=== PATIENT | male | born 1970 | race Caucasian/White ===

== ENCOUNTER 2021-10-30 03:45 | Inpatient (IN) | payer MEDICAID ==
[~2021-10-30] VITALS: Ht 172.7 cm; Wt 72.6 kg
--- NOTE | 2021-10-30 04:02 | NUR ---
Dr. Lama at bedside for MSE.
--- NOTE | 2021-10-30 04:02 | NUR ---
pt c/o right leg swelling, started two days ago.
[2021-10-30] MEDS ORDERED: LINA290C PO (04:10)
[2021-10-30] MEDS ORDERED: LOSA25TA27 PO (04:10)
[2021-10-30] MEDS ORDERED: PIPERACILLIN SODIUM/TAZOBACTAM 3.375 G in IV DEXTROSE 5% 50 ML IV ONE (04:30)
[2021-10-30] MEDS ORDERED: VANCOMYCIN IV 1,000 MG in IV DEXTROSE 5% 250 ML IV ONE (04:30)
[2021-10-30] MEDS ORDERED: ONDANSETRON 4 MG/2 ML VIAL IV ONE (04:30)
[2021-10-30] MEDS ORDERED: HYDROMORPHONE 1 MG/1 ML DISP.SYRIN IV ONE (04:30)
[2021-10-30] MEDS ORDERED: IV NORMAL SALINE 1000 ML BAG IV ONE (04:30)
[2021-10-30] MEDS ORDERED: HYDROMORPHONE 1 MG/1 ML DISP.SYRIN ONE (05:07)
[2021-10-30] MEDS ORDERED: VANCOMYCIN IV 200 ML ONE (05:07)
[2021-10-30] MEDS ORDERED: PIPERACILLIN/TAZOBACTAM/D5W 50 ML IV ONE (05:07)
[2021-10-30] MEDS ORDERED: ONDANSETRON 4 MG/2 ML VIAL ONE (05:07)
[2021-10-30 05:12] LABS: MEAN CORPUSCULAR HEMOGLOBIN 31.6 uug (23.8-33.4); MEAN CORPUSCULAR VOLUME 91.1 fL (73.0-96.2); PLATELET COUNT (AUTO) 360 K/uL (152-348)
[2021-10-30 05:21] LABS: CARBON DIOXIDE 29 mmol/L (21-32); CHLORIDE 101 mmol/L (98-107); GLUCOSE 87 mg/dL (74-106); POTASSIUM 3.7 mmol/L (3.5-5.1); UREA NITROGEN, BLOOD 26 mg/dL (7-18)
--- NOTE | 2021-10-30 05:31 | NUR ---
snow technician at bedside.
[2021-10-30 05:36] LABS: ALANINE AMINOTRANSFERASE 34 U/L (16-63); ALKALINE PHOSPHATASE 229 U/L (50-136); ASPARTATE AMINOTRANSFERASE 24 U/L (15-37); BILIRUBIN,DIRECT 0.3 mg/dL (0.0-0.2); BILIRUBIN,TOTAL 0.6 mg/dL (0.2-1.0); TOTAL PROTEIN, SERUM 7.4 g/dL (6.4-8.2)
--- NOTE | 2021-10-30 05:46 | NUR ---
call placed to rosa aguayo nurse practitioner adult.
--- NOTE | 2021-10-30 05:59 | NUR ---
Dr. Lama on panel call with Caridad Child NP.
[2021-10-30] MEDS ORDERED: NICOTINE 21 MG/24HR PATCH TD ONE (06:01)
--- NOTE | 2021-10-30 06:17 | NUR ---
Caridad oK called back pt to be admited to M/S status.
[2021-10-30] MEDS ORDERED: REMEDY ESSENTIAL ZINC PASTE 113 GM TP PRN (07:00)
[2021-10-30] MEDS ORDERED: ONDANSETRON 4 MG/2 ML VIAL IV PRN (07:00)
--- NOTE | 2021-10-30 07:10 | NUR ---
Received pt in bed, NAD noted at this time.
--- NOTE | 2021-10-30 08:15 | NUR ---
Breakfast tray provided, pt ate w/ moderate appettite.
--- NOTE | 2021-10-30 08:20 | NUR ---
Attempted x2 to give report to admitting m/s Rn, Rn was busy.
[2021-10-30] MEDS: ACETAMINOPHEN 325 MG TABLET PO PRN (08:24)
[2021-10-30] MEDS ORDERED: ACETAMINOPHEN 325 MG TABLET ONE (08:31)
--- NOTE | 2021-10-30 08:46 | NUR ---
Report given to Shin HERNÁNDEZ.
--- NOTE | 2021-10-30 08:48 | NUR ---
RECEIVED PATIENT FOR ADMISSION 50 YEARS OLD MALE FROM THE ED WITH DX OF CELLULITIS PLACED INTO BED FIXED AND MADE COMFORTABLE PATIENT IS ALERT AND ORIENTED ORIENTED TO ROOM AND FACILITY PROTOCOL HE IS ON ROOM AIR WITH NO SHORTNESS OF BREATH AT THIS TIME MULTIPLE AREAS OF OPEN WOUNDS ON HIS LEFT THUMB RIGHT FOURTH FINGER AND A DRY SCAB ON HIS RIGHT UPPER ARM.HE HAS ALSO OPEN WOUNDS ON HIS RIGHT LEG CELLULITIS AND IS WEEPING SEROUS DRAINAGE ABOUT 4 PLUS EDEMA AND ERYTHEMA ELEVATED ON THE PILLOW PATIENT MADE COMFORTABLE WILL CONTINUE TO OBSERVE
[2021-10-30] MEDS ORDERED: NICOTINE 21 MG/24HR PATCH TD SCH (09:00)
[2021-10-30 09:03] VITALS: BP 117/69
--- NOTE | 2021-10-30 09:30 | NUR ---
DR GONZÁLES HERE NOTIFIED HIM THAT PATIENT IS C/O PAIN AND NEEDED PAIN MEDICATIONS WITH ORDERS AND NOTED.
[2021-10-30] MEDS: PIPERACILLIN SODIUM/TAZOBACTAM 3.375 G in IV DEXTROSE 5% 50 ML IV SCH ×3 (10:27→23:08)
[2021-10-30] MEDS: MORPHINE SULFATE 2 MG/1 ML DISP.SYRIN IV PRN ×3 (10:28→21:48)
--- NOTE | 2021-10-30 10:28 | NUR ---
PATIENT C/O SEVERE PAIN MEDICATED WITH MORPHINE ORDERED MADE COMFORTABLE WILL CONTINUE TO OBSERVE.
[2021-10-30] MEDS: ENOXAPARIN SODIUM 40 MG/0.4 ML DISP.SYRIN SQ SCH (10:29)
[2021-10-30 11:30] VITALS: BP 108/57
[2021-10-30 11:33] VITALS: BP 123/70
--- NOTE | 2021-10-30 12:56 | NUR ---
IV SITE RIGHT ANTECUBITAL INFILTERATED REINSERTED TO HIS RIGHT FOREARM WITH ANGIO 20 SECURED AND TOLERATED WELL.
--- NOTE | 2021-10-30 13:41 | NUR ---
WOUND CARE CONSULT: PT PRESENTS WITH PROFOUND REDNESS, EDEMA AND WEEPING OF RT LOWER LEG, OPEN WOUND TO LEFT THUMB AND TO RT 4TH FINGER KNUCKLE, PRESENT ON ADMISSION. SURGICAL AND DPM CONSULTS CALLED TO DR BURRELL AND DR VALERA. DISCUSSED SKIN PROTECTION WITH NURSING STAFF. MD IN AGREEMENT WITH PLAN OF CARE.
--- NOTE | 2021-10-30 15:29 | NUR ---
PATIENT IS IN BED SLEEPING AT LONG INTERVAL BUT EASILY AROUSABLE ON ROUNDS STATED PAIN IS GOOD NOW VOIDING WELL SPECIMEN OBTAINED AND SENT TO THE LAB ORDERED TOLERATING IV ANTIBIOTICS ORDERED WITH NO ADVERSE OR ALLERGIC REACTIONS AT THIS TIME.
[2021-10-30 15:47] LABS: *BILIRUBIN,URIN NEGATIVE (NEGATIVE); *BLOOD, URINE 1+ (NEGATIVE); *CLARITY,URINE CLEAR (CLEAR); *COLOR,URINE YELLOW (YELLOW); *KETONES,URINE NEGATIVE (NEGATIVE); LEUKOCYTE ESTERASE ,URINE NEGATIVE (NEGATIVE); NITRITE, URINE NEGATIVE (NEGATIVE); UGLUCOSE NEGATIVE (NEGATIVE)
[2021-10-30 16:00] VITALS: BP 118/85
[2021-10-30] MEDS: VANCOMYCIN IV 1,000 MG in IV DEXTROSE 5% 250 ML IV SCH (17:34)
[2021-10-30] MEDS ORDERED: ALBUTEROL SULFATE 2.5 MG/3 ML NEBU NEB PRN (17:45)
[2021-10-30] MEDS: HYDROCODONE/APAP 5-325MG TABLET PO PRN (19:43)
--- NOTE | 2021-10-30 19:43 | NUR ---
Patient requesting for pain medication. Morphine IV not due; medicated with [place]. R leg with wound oozing serous fluids. Pad changed. Pedal pulses palpable, patient able to wiggle toes.
[2021-10-30 19:48] LABS: BACTERIA,URINE NONE SEEN /HPF (NONE SEEN); SQUAMOUS EPITHELIAL CELL,UR NONE SEEN /HPF (NONE SEEN); WBC,URINE 0-3 /HPF (0-3)
[2021-10-30 20:00] VITALS: BP 126/75
[2021-10-30] MEDS: NEOMY/BACITRAC/POLYMI OINT 28.35 GM TUBE TOP SCH (22:15)
[2021-10-31] MEDS: MORPHINE SULFATE 2 MG/1 ML DISP.SYRIN IV PRN ×2 (02:18→06:09)
[2021-10-31 04:00] VITALS: BP 145/80
[2021-10-31] MEDS: HYDROCODONE/APAP 5-325MG TABLET PO PRN (04:15)
--- NOTE | 2021-10-31 04:15 | NUR ---
Patient awake, asking for pain medication. Was medicated with Morphine IV at 0218. [place] 1 tab given. R leg wound treatment done. Wound cleaned with NS, patted dry, xeroform dressing applied, covered with gauze and wrapped with kerlix. Wound still oozing serous fluids. R leg remains elevated on a pillow. Patient voiding large amounts of clear shan urine.
[2021-10-31] MEDS: PIPERACILLIN SODIUM/TAZOBACTAM 3.375 G in IV DEXTROSE 5% 50 ML IV SCH ×4 (04:25→22:17)
[2021-10-31] MEDS: VANCOMYCIN IV 1,000 MG in IV DEXTROSE 5% 250 ML IV SCH ×2 (05:18→19:03)
[2021-10-31] MEDS: PANTOPRAZOLE SODIUM 40 MG TABLET.DR PO SCH (06:05)
--- NOTE | 2021-10-31 06:33 | NUR ---
Requiring Morphine 2 mg IV Q4H for R leg pain from cellulitis. VS stable.
[2021-10-31 07:16] LABS: HEMATOCRIT 39.4 % (36.7-47.1); MEAN CORPUSCULAR HEMOGLOBIN 31.9 uug (23.8-33.4); MEAN CORPUSCULAR VOLUME 91.5 fL (73.0-96.2); PLATELET COUNT (AUTO) 318 K/uL (152-348)
[2021-10-31 07:33] LABS: CREATININE 0.9 mg/dL (0.6-1.3); MAGNESIUM 1.8 mg/dL (1.8-2.4); PHOSPHOROUS 3.3 mg/dL (2.5-4.9)
--- NOTE | 2021-10-31 07:58 | NUR ---
RECEIVED PATIENT IN BED ASLEEP WITH EYES CLOSED BUT IS EASILY AROUSABLE ON ROUNDS NO S/S OF PAIN OR DISCOMFORTS AT THIS TIME REMAIN ON ATB ORDERED WITH NO ADVERSE OR ALLERGIC REACTIONS AT THIS TIME ON ROOM AIR WITH NO SHORTNESS OF BREATH RIGHT LEG CELLULITIS REMAINS SWOLLEN WITH ERYTHEMA AND WITH SEROUS DRAINAGE BUT HAS DRESSING INTACT AT THIS TIME RIGHT LEG ELEVATED ON THE PILLOW CALL LIGHTS AND PERSONAL BELONGINGS ARE WITHIN EASY REACH AT THIS TIME WILL CONTINUE TO OBSERVE.
[2021-10-31 08:28] LABS: THYROID STIMULATING HORMONE 1.508 mIU/mL (0.358-3.740)
[2021-10-31] MEDS: ENOXAPARIN SODIUM 40 MG/0.4 ML DISP.SYRIN SQ SCH (08:42)
[2021-10-31] MEDS: NEOMY/BACITRAC/POLYMI OINT 28.35 GM TUBE TOP SCH (09:07)
[2021-10-31] MEDS: MORPHINE SULFATE 4 MG/1 ML DISP.SYRIN IV PRN ×3 (10:27→20:34)
[2021-10-31 11:56] VITALS: BP 140/89
--- NOTE | 2021-10-31 12:41 | NUR ---
PATIENT SEEN AND EXAMINED BY DR FUENTES WITH NEW ORDERS AND NOTED.
[2021-10-31] MEDS: CADEXOMER IODINE 40 GM TUBE TOP SCH (15:28)
[2021-10-31 16:26] VITALS: BP 137/81
--- NOTE | 2021-10-31 18:00 | NUR ---
CONTINUE ON IV ATB ORDERED WITH NO ADVERSE OR ALLERGIC REACTIONS AT THIS TIME PATIENT IS FOR MRI OF THE RIGHT LOWER LEG AWAITING FOR THE [employer]ION PICTURE EQUIPMENT MACHINIST TO CALL WITH APPOINTMENT.
--- NOTE | 2021-10-31 19:00 | NUR ---
RECEIVED PT AWAKE ,ALERT AND ORIENTEDX4. PT IN NO ACUTE DISTRESS. IV INTACT. PT ON ROOM AIR.PT RIGHT LEG SWOLLEN AND ELEVATED WITH DRESSING INTACT. SAFETY AND COMFORT PROVIDED. WILL ENDORSE TO INCOMING NURSE FOR CONTINUITY OF CARE.
[2021-10-31 20:03] VITALS: BP_SYST 114; BP_SYST 144; BP_DIAS 82; BP_DIAS 93
--- NOTE | 2021-10-31 21:00 | NUR ---
AT 2033H MORPHINE 3MG PRN GIVEN TO PT FOR LEG PAIN. PT TOLERATED IT WELL. WILL CONTINUE TO MONITOR.
[2021-10-31] MEDS: MAGNESIUM HYDROXIDE 30 ML LIQUID UDC PO PRN (23:00)
[2021-11-01] MEDS: MORPHINE SULFATE 4 MG/1 ML DISP.SYRIN IV PRN ×5 (00:49→22:39)
[2021-11-01] MEDS: VANCOMYCIN IV 1,000 MG in IV DEXTROSE 5% 250 ML IV SCH ×3 (01:37→18:02)
--- NOTE | 2021-11-01 01:49 | NUR ---
[id number] Morphine 3mg prn given for 8/10 leg pain. Pt tolerated it well. After an hour pt stated he felt a little better. Will cotninue to monitor.
[2021-11-01 04:15] VITALS: BP 151/86
[2021-11-01] MEDS: PIPERACILLIN SODIUM/TAZOBACTAM 3.375 G in IV DEXTROSE 5% 50 ML IV SCH ×4 (05:12→22:32)
--- NOTE | 2021-11-01 05:51 | NUR ---
Pt slept intermittently. Pt in no acute distress. Iv intact. Pt right leg elevated. Dressing changed. Pain management noted. Prescribed medication given and pt tolerated it well. Pt at midnight NPO. Vital signs within normal limit. Safety and comfort provided. Will endorse to incoming nurse for continuity of care.
[2021-11-01] MEDS: PANTOPRAZOLE SODIUM 40 MG TABLET.DR PO SCH (06:08)
--- NOTE | 2021-11-01 06:09 | NUR ---
P:t refused Protonix medication and pt will have MRI later so pt is on NPO. Will endorse to incoming nurse.
[2021-11-01 07:51] LABS: CREATININE 0.8 mg/dL (0.6-1.3); POTASSIUM 5.1 mmol/L (3.5-5.1)
[2021-11-01] MEDS: ENOXAPARIN SODIUM 40 MG/0.4 ML DISP.SYRIN SQ SCH (08:28)
[2021-11-01] MEDS: CADEXOMER IODINE 40 GM TUBE TOP SCH (08:31)
[2021-11-01] MEDS: NEOMY/BACITRAC/POLYMI OINT 28.35 GM TUBE TOP SCH (08:31)
--- NOTE | 2021-11-01 08:38 | NUR ---
patient is alert and oriented x4 able to make needs known. patient is on r/a, respiratiosn even an dnon-labored, 0 episode of sob at this time. bowel sounds active in all 4 quadrants, abd is soft and non-tender. currently with ongoing cellulitis to right leg, right leg is slightly red and warm to touch ongoing topical treatment and IV atb tolerating well. patient states slight discomfort to right leg states " it is feeling better" informed patient he is on NPO status at this time, pending MRI with contrast to right leg. patient states understanding. v.s wnl at this time afebrile.
[2021-11-01 12:00] VITALS: BP 131/88
[2021-11-01] MEDS ORDERED: GADOTERATE MEGLUMINE 10 MMOL/20 ML VIAL IV ONE (15:08)
[2021-11-01] MEDS: NICOTINE 21 MG/24HR PATCH TD SCH (15:27)
[2021-11-01] MEDS ORDERED: LIDOCAINE 1%-EPI 1:100,000 20 ML VIAL IJ STA (16:27)
[2021-11-01 16:29] VITALS: BP 159/95
--- NOTE | 2021-11-01 17:00 | NUR ---
Dr. Chung in unit, per Dr. Chung she will attempt a serial right lower leg incision and draining with excisional wound debridement, Dr. Chung obtained consent, supplies where provided to MD. Per Dr. Chung procedure was unable to be completed at bedside and patient will be scheduled for surgery at 1330 on 11/02 procedure is right lower leg incision and drainage with excisional wound debridement. and order for patient to be NPO tonight at midnight noted and carried out.
--- NOTE | 2021-11-01 17:53 | NUR ---
called Dr. Pisano regarding patient requesting x1 morphine due to increased pain to right lower leg. x1 order for morphine 2mg via iv noted and carried out. informed Dr. Pisano patient is scheduled for a right lower leg incision and drainage with excisional wound debridement with Dr. Chung
[2021-11-01] MEDS ORDERED: MORPHINE SULFATE 2 MG/1 ML DISP.SYRIN IV ONE (18:00)
[2021-11-01 20:34] VITALS: BP 157/97
--- NOTE | 2021-11-01 23:58 | NUR ---
npo p midnight instructed for the ordered procedure in am. Addendum: 11/02/21 at 0007 by REGISTRY [facility] RN1 RN with orders for NPO except medication for breakfast
[2021-11-02] MEDS: VANCOMYCIN IV 1,000 MG in IV DEXTROSE 5% 250 ML IV SCH ×3 (02:13→17:54)
--- NOTE | 2021-11-02 02:47 | NUR ---
ambulated to the bathroom with the walker and standby assist. back to bed,tolerated well
[2021-11-02] MEDS: MORPHINE SULFATE 4 MG/1 ML DISP.SYRIN IV PRN ×3 (03:00→18:49)
--- NOTE | 2021-11-02 03:14 | NUR ---
morphine 3 mg ivp given for right lower leg pain.with complaints of being warm.will continue to monitor Addendum: 11/02/21 at 0338 by REG[facility]RY [facility] RN1 RN claims morphine dose relieves the pain but the pain will come back again. informed that the procedure to be done in the day shift tomorrow.
[2021-11-02 04:20] VITALS: BP 157/99
--- NOTE | 2021-11-02 04:53 | NUR ---
npo except medication for breakfast.with the same ivf on.
[2021-11-02] MEDS: PIPERACILLIN SODIUM/TAZOBACTAM 3.375 G in IV DEXTROSE 5% 50 ML IV SCH ×4 (05:08→22:09)
--- NOTE | 2021-11-02 05:53 | NUR ---
reinstructed to be npo except medications. expressed understanding
[2021-11-02] MEDS: PANTOPRAZOLE SODIUM 40 MG TABLET.DR PO SCH (06:17)
--- NOTE | 2021-11-02 06:38 | NUR ---
,medication due given npo thereafter
--- NOTE | 2021-11-02 06:59 | NUR ---
asking for pain medication but not yet due, will give when due
--- NOTE | 2021-11-02 07:34 | NUR ---
medication from home will be given to the pharmacy.home medication not reconciled
[2021-11-02] MEDS ORDERED: LOSA1TAB36 PO (07:49)
[2021-11-02] MEDS: NICOTINE 21 MG/24HR PATCH TD SCH (08:15)
[2021-11-02] MEDS: ENOXAPARIN SODIUM 40 MG/0.4 ML DISP.SYRIN SQ SCH (08:15)
[2021-11-02] MEDS: NEOMY/BACITRAC/POLYMI OINT 28.35 GM TUBE TOP SCH (08:26)
[2021-11-02] MEDS: CADEXOMER IODINE 40 GM TUBE TOP SCH (08:26)
[2021-11-02 11:12] VITALS: BP 152/96
[2021-11-02] MEDS ORDERED: MIDAZOLAM HCL 2 MG/2 ML VIAL ONE (13:09)
[2021-11-02] MEDS ORDERED: FENTANYL CITRATE 100 MCG/2 ML AMPUL ONE ×3 (13:09→16:01)
[2021-11-02] MEDS ORDERED: HYDROMORPHONE 1 MG/1 ML DISP.SYRIN ONE (15:16)
[2021-11-02 15:51] LABS: HEMATOCRIT 45.2 % (36.7-47.1); MEAN CORPUSCULAR HEMOGLOBIN 30.9 uug (23.8-33.4); PLATELET COUNT (AUTO) 467 K/uL (152-348)
--- NOTE | 2021-11-02 16:52 | NUR ---
patient returned from surgery s/p right lower leg incision and drainage, patient is currently sleeping but arousable currently on 2L via n/c with spo2 96% on 2L, rr even and non-labored, 0 episode of sob at this time. patient with dressing to right lower leg, no bleeding to dressing at his time, pedal pulses strong and present. patient states having pain, OR nurse reminded patient he received fentanyl in OR 5 minutes ago, patient dozed of to sleep. v.s wnl at this time. no fever. New orders for non-weightbearing to right leg x24 hours, elevate right lower leg noted and carried out. New order to d.c npo order and to resume cardiac diet. noted and carried out.
--- NOTE | 2021-11-02 17:05 | NUR ---
patient requesting an increase in pain medication, Dr. Pisano notified pending call back
[2021-11-02 20:00] VITALS: BP 133/85
--- NOTE | 2021-11-02 20:00 | NUR ---
ROUNDED PATIENT IN BED SLEEPING NO RESPIRATORY DISTRESS NOTED. BREATHING EVEN AND UNLABORED .02 O2 NASAL CANNULA AT 2 L/MIN . NAME CALLED PATIENT EASILY AWAKENED. CHECKED RIGHT LEG POST OP - DRESSING CLEAN DRY AND INTACT , WITH GOOD CMS . PALPABLE PULSES DP .PATIENT ABLE TO FEEL WHEN TOES ARE TOUCH . RIGHT LEG ELEVATED WITH PILLOW . ADVISED TO BED ON BEDREST FOR NOW AND NWB ON THE RIGHT LEG .
--- NOTE | 2021-11-02 21:30 | NUR ---
PATIENT CALLED AND REQUESTING FOR PAIN MEDICATION , INFORMED HIS PAIN MEDS IS MORPHINE AND PER DAY SHIFT RN IT WAS GIVEN AT 1830 AND ITS Q6 HOURS PRN FOR PAIN AND ITS NOT DUE ,PATIENT VERBALIZED HIS IN PAIN AND Q 6 HOURS IS INTERVAL IS SO LONG AND WANT MEDICATION FOR SLEEP . INFORMED RN WILL CALL HIS DOCTOR AND WILL ASKED FOR PAIN MED AND SLEEPING MEDS .
[2021-11-02] MEDS: ACETAMINOPHEN 325 MG TABLET PO PRN (21:43)
--- NOTE | 2021-11-02 22:02 | NUR ---
DUE ANTIBIOTIC GIVEN ZOSYN . CHECKED IV SITE CDI AND PATENT ,FLUSHED SITE .
[2021-11-02] MEDS: GABAPENTIN 100 MG CAPSULE PO SCH (22:16)
[2021-11-02] MEDS: TRAMADOL HCL 50 MG TABLET PO SCH (22:16)
--- NOTE | 2021-11-02 22:16 | NUR ---
GIVEN TRAMADOL AND GABAPENTIN PO SEE EMAR .
[2021-11-02] MEDS: ZOLPIDEM 5 MG TABLET PO PRN (22:24)
--- NOTE | 2021-11-02 22:31 | NUR ---
PATIENT REQUESTED PUDDING PROVIDED VANILLA AND CHOCOLATE FLAVORED PATIENT ABLE TO FEED SELF.
--- NOTE | 2021-11-02 23:59 | NUR ---
SLEEPING IN BED NO S/S OF PAIN OR RESPIRATORY DISTRESS NOTED .
[2021-11-03] MEDS: VANCOMYCIN IV 1,000 MG in IV DEXTROSE 5% 250 ML IV SCH ×3 (01:31→18:15)
[2021-11-03 04:00] VITALS: BP 130/79
[2021-11-03] MEDS: PIPERACILLIN SODIUM/TAZOBACTAM 3.375 G in IV DEXTROSE 5% 50 ML IV SCH ×4 (04:05→22:28)
[2021-11-03] MEDS: MORPHINE SULFATE 4 MG/1 ML DISP.SYRIN IV PRN ×4 (04:05→22:35)
--- NOTE | 2021-11-03 04:38 | NUR ---
PATIENT CALLED AND REQUESTING FOR SNACK GIVEN PUDDING VANILLA AND CHOCOLATE . CRANBERRY JUICE PATIENT ABLE TO FEED SELF.
[2021-11-03] MEDS: PANTOPRAZOLE SODIUM 40 MG TABLET.DR PO SCH (06:01)
[2021-11-03 06:29] LABS: HEMATOCRIT 37.2 % (36.7-47.1); MEAN CORPUSCULAR HEMOGLOBIN 31.6 uug (23.8-33.4); MEAN CORPUSCULAR VOLUME 91.4 fL (73.0-96.2); PLATELET COUNT (AUTO) 392 K/uL (152-348)
[2021-11-03] MEDS: TRAMADOL HCL 50 MG TABLET PO SCH ×3 (09:00→16:35)
[2021-11-03] MEDS: GABAPENTIN 100 MG CAPSULE PO SCH ×3 (09:01→16:35)
[2021-11-03] MEDS: NEOMY/BACITRAC/POLYMI OINT 28.35 GM TUBE TOP SCH (09:01)
[2021-11-03] MEDS: CADEXOMER IODINE 40 GM TUBE TOP SCH (09:01)
[2021-11-03] MEDS: NICOTINE 21 MG/24HR PATCH TD SCH (09:01)
[2021-11-03] MEDS: ENOXAPARIN SODIUM 40 MG/0.4 ML DISP.SYRIN SQ SCH (09:05)
[2021-11-03 11:05] VITALS: BP 135/85
[2021-11-03] MEDS ORDERED: HOME MED MISCELLANEOUS XX SCH (13:30)
[2021-11-03] MEDS ORDERED: LINZESS 290MCG CAPSULE PO SCH (15:00)
[2021-11-03] MEDS: LOSARTAN POTASSIUM 50 MG TABLET PO SCH (15:46)
[2021-11-03] MEDS: HYDROCHLOROTHIAZIDE 12.5 MG CAPSULE PO SCH (15:46)
[2021-11-03 16:31] VITALS: BP 141/86
--- NOTE | 2021-11-03 20:00 | NUR ---
PATIENT ASLEEP IN BED. EASILY AROUSABLE. A/O X3. NO C/O PAIN AT THIS TIME. RIGHT LEG ELEVATED ON PILLOWS, DRESSING NOTED TO RIGHT LEG, C/D/I. IV HEPLOCK INTACT AND PATENT, NOTED TO RIGHT FA #20 GAUGE. DENIES ANY PAIN OR DISCOMFORT. NO RESP. DISTRESS NOTED. CALL LIGHT IN REACH. ALL NEEDS ATTENDED. WILL CONTINUE TO MONITOR AND ASSESS.
[2021-11-03 20:18] VITALS: BP 123/76
[2021-11-03] MEDS: MAGNESIUM HYDROXIDE 30 ML LIQUID UDC PO PRN (20:21)
[2021-11-04] MEDS: ZOLPIDEM 5 MG TABLET PO PRN (01:40)
[2021-11-04] MEDS: ACETAMINOPHEN 325 MG TABLET PO PRN (01:40)
[2021-11-04] MEDS: VANCOMYCIN IV 1,000 MG in IV DEXTROSE 5% 250 ML IV SCH ×2 (01:47→10:34)
[2021-11-04 04:00] VITALS: BP 119/71
[2021-11-04] MEDS: PIPERACILLIN SODIUM/TAZOBACTAM 3.375 G in IV DEXTROSE 5% 50 ML IV SCH ×2 (04:13→11:45)
[2021-11-04] MEDS: PANTOPRAZOLE SODIUM 40 MG TABLET.DR PO SCH (06:06)
[2021-11-04] MEDS ORDERED: LISINOPRIL 10 MG TABLET PO SCH (09:00)
[2021-11-04] MEDS: NICOTINE 21 MG/24HR PATCH TD SCH (09:11)
[2021-11-04] MEDS: ENOXAPARIN SODIUM 40 MG/0.4 ML DISP.SYRIN SQ SCH (09:13)
[2021-11-04] MEDS: HYDROCHLOROTHIAZIDE 12.5 MG CAPSULE PO SCH (09:14)
[2021-11-04] MEDS: GABAPENTIN 100 MG CAPSULE PO SCH ×2 (09:14→12:33)
[2021-11-04] MEDS: LOSARTAN POTASSIUM 50 MG TABLET PO SCH (09:14)
[2021-11-04] MEDS: TRAMADOL HCL 50 MG TABLET PO SCH ×2 (09:15→12:32)
[2021-11-04] MEDS: MORPHINE SULFATE 4 MG/1 ML DISP.SYRIN IV PRN (09:19)
[2021-11-04 10:07] LABS: CREATININE 0.8 mg/dL (0.6-1.3); POTASSIUM 3.9 mmol/L (3.5-5.1); VANCOMYCIN,TROUGH 17.1 ug/mL (12.0-20.0)
[2021-11-04 11:04] VITALS: BP 140/85
[2021-11-04] MEDS: NEOMY/BACITRAC/POLYMI OINT 28.35 GM TUBE TOP SCH (12:33)
[2021-11-04] MEDS: CADEXOMER IODINE 40 GM TUBE TOP SCH (12:33)
[2021-11-04] MEDS ORDERED: LIDOCAINE-MPF 2% 5 ML VIAL IJ ONE (13:59)
[2021-11-04] MEDS ORDERED: PROPOFOL 200 MG/20 ML BOTTLE IV ONE (13:59)
[2021-11-04] MEDS ORDERED: METOCLOPRAMIDE HCL 10 MG/2 ML VIAL IV ONE (13:59)
[2021-11-04] MEDS ORDERED: SEVOFLURANE 250 ML BOTTLE IH ONE (13:59)
[2021-11-04] MEDS ORDERED: ONDANSETRON 4 MG/2 ML VIAL IV ONE (13:59)
[2021-11-04] MEDS ORDERED: CEFAZOLIN 1 G VIAL IM ONE (13:59)
== END 2021-11-04 14:00 | DRG 383 ==
LOC: ER 03:58 → MEDSURG3 08:23
PROVIDERS: ADMIT Nurse Practitioner Acute Care; ATTEND Internal Medicine
PROC: 0JBN3ZZ Excision of Right Lower Leg Subcutaneous Tissue and Fascia, Percutaneous Approach (ICD-10-PCS; principal; 2021-11-01)
PROC: 0JBN3ZZ Excision of Right Lower Leg Subcutaneous Tissue and Fascia, Percutaneous Approach (ICD-10-PCS; 2021-11-02)
DX: L03.115 Cellulitis of right lower limb (principal); I73.9 Peripheral vascular disease, unspecified; F17.210 Nicotine dependence, cigarettes, uncomplicated; L03.116 Cellulitis of left lower limb; L02.415 Cutaneous abscess of right lower limb; S61.002A Unspecified open wound of left thumb without damage to nail, initial encounter; X58.XXXA Exposure to other specified factors, initial encounter; Y92.89 Other specified places as the place of occurrence of the external cause; I10 Essential (primary) hypertension; S91.321D Laceration with foreign body, right foot, subsequent encounter; W25.XXXD Contact with sharp glass, subsequent encounter; W45.8XXD Other foreign body or object entering through skin, subsequent encounter; R26.2 Difficulty in walking, not elsewhere classified; R31.9 Hematuria, unspecified; Z20.822 Contact with and (suspected) exposure to COVID-19; L03.012 Cellulitis of left finger
CPT/HCPCS: 36415; 71045; 73723; 83605; 83735; 84100; 84443; 84484; 85025; 85730; 87040; 87070; 87086; 93005; A4649; A4663; A9575; G0378; J0690; J1170; J1650; J2250; J2270; J2405; J2543; J2765; J3010; J3370; J3490; J7030; J7060

== ENCOUNTER 2021-12-09 00:47 | Emergency (ER) | payer SELFPAY ==
[~2021-12-09] VITALS: Ht 172.7 cm; Wt 65.8 kg
[~2021-12-09 00:47] MED LIST: LINA290C PO; LOSA1TAB36 PO
--- NOTE | 2021-12-09 01:24 | NUR ---
Dr Eduardo at bedside, MSE in progress.
[2021-12-09] MEDS ORDERED: CLINDAMYCIN HCL 150 MG CAPSULE PO ONE (01:30)
[2021-12-09] MEDS ORDERED: CLINDAMYCIN HCL 150 MG CAPSULE ONE (01:30)
[2021-12-09] MEDS ORDERED: HYDROCODONE/APAP 10-325 MG TABLET PO ONE (01:30)
[2021-12-09] MEDS ORDERED: HYDROCODONE/APAP 10-325 MG TABLET ONE (01:31)
[2021-12-09] MEDS ORDERED: CLIN300C12 PO (01:32)
[2021-12-09] MEDS ORDERED: HYDR-3980 PO (01:32)
--- NOTE | 2021-12-09 02:09 | NUR ---
Patient discharged to home in stable condition. Written and verbal after care instructions given. Patient verbalizes understanding of instructions. Stressed follow up or return to ER for worsening s/s. pt ambulated with steady gait. denies pain. no SOB. no chest pain.
[2021-12-09 02:10] VITALS: BP 150/101
== END 2021-12-09 02:11 | disposition home or self-care (01) ==
LOC: ER 00:47
DX: L97.911 Non-pressure chronic ulcer of unspecified part of right lower leg limited to breakdown of skin (principal); M79.661 Pain in right lower leg; Z59.02 Unsheltered homelessness; F17.210 Nicotine dependence, cigarettes, uncomplicated; R03.0 Elevated blood-pressure reading, without diagnosis of hypertension
CPT/HCPCS: A4663

== ENCOUNTER 2021-12-31 13:12 | Inpatient (IN) | payer SELFPAY ==
[~2021-12-31] VITALS: Ht 175.3 cm; Wt 65.3 kg
[~2021-12-31 13:12] MED LIST changes: +CLIN300C12 PO; +HYDR-3980 PO
--- NOTE | 2021-12-31 13:15 | NUR ---
MD at bedside, medical screening exam in progress.
--- NOTE | 2021-12-31 13:15 | NUR ---
Per , cancel order for epi IV.
[2021-12-31] MEDS ORDERED: IV NORMAL SALINE 1000 ML BAG IV ONE (13:45)
[2021-12-31] MEDS ORDERED: VANCOMYCIN IV 1,000 MG in IV DEXTROSE 5% 250 ML IV ONE (13:45)
[2021-12-31] MEDS ORDERED: PIPERACILLIN SODIUM/TAZOBACTAM 3.375 G in IV DEXTROSE 5% 50 ML IV ONE (13:45)
[2021-12-31] MEDS ORDERED: HYDROCORTISONE SOD SUCCINATE 100 MG/2 ML VIAL IV ONE ×2 (14:00→14:13)
[2021-12-31 14:02] LABS: HEMATOCRIT 42.3 % (36.7-47.1); MEAN CORPUSCULAR HEMOGLOBIN 30.3 uug (23.8-33.4); MEAN CORPUSCULAR VOLUME 88.4 fL (73.0-96.2); PLATELET COUNT (AUTO) 262 K/uL (152-348)
[2021-12-31] MEDS ORDERED: PIPERACILLIN/TAZOBACTAM/D5W 50 ML IV ONE (14:13)
[2021-12-31] MEDS ORDERED: VANCOMYCIN IV 200 ML ONE (14:13)
[2021-12-31 14:20] LABS: CARBON DIOXIDE 32 mmol/L (21-32); CHLORIDE 100 mmol/L (98-107); CREATININE 0.7 mg/dL (0.6-1.3); GLUCOSE 90 mg/dL (74-106); POTASSIUM 3.5 mmol/L (3.5-5.1); UREA NITROGEN, BLOOD 12 mg/dL (7-18)
[2021-12-31 14:29] LABS: ALANINE AMINOTRANSFERASE 40 U/L (16-63); ALKALINE PHOSPHATASE 138 U/L (50-136); ASPARTATE AMINOTRANSFERASE 25 U/L (15-37); BILIRUBIN,DIRECT 0.1 mg/dL (0.0-0.2); BILIRUBIN,TOTAL 0.3 mg/dL (0.2-1.0); TOTAL PROTEIN, SERUM 7.6 g/dL (6.4-8.2)
--- NOTE | 2021-12-31 14:50 | NUR ---
Patient receiving IV vancomycin per MD order, around 14:50 patient stated itchiness all over the body. IV vancomycin immediately stopped. Upon assessment, pt noted with urticaria, vitals as follows; BP-151/70 AK-119 RR-21 T-97.6 SPO2-95% PA-0/10.
--- NOTE | 2021-12-31 14:52 | NUR ---
MD ordered IV benadryl and solu-medrol IV. Patient not in distress.
[2021-12-31] MEDS ORDERED: diphenhydrAMINE 50 MG/1 ML VIAL ONE (14:57)
[2021-12-31] MEDS ORDERED: diphenhydrAMINE 50 MG/1 ML VIAL IV ONE (15:00)
[2021-12-31] MEDS ORDERED: methylPREDNISolone SOD SUCC 125 MG/2 ML VIAL IV ONE (15:00)
[2021-12-31] MEDS ORDERED: EPINEPHRINE 1 MG/1 ML AMP IM ONE (15:00)
[2021-12-31] MEDS ORDERED: methylPREDNISolone SOD SUCC 125 MG/2 ML VIAL ONE (15:02)
--- NOTE | 2021-12-31 15:15 | NUR ---
Patient stated feeling better, itchiness subsided after giving medications. Vitals as follows; BP-151/80 NM-101 RR-19 T-97 SPO2-96%.
[2021-12-31] MEDS ORDERED: REMEDY ESSENTIAL ZINC PASTE 113 GM TP PRN (15:45)
[2021-12-31] MEDS ORDERED: MAGNESIUM HYDROXIDE 30 ML LIQUID UDC PO PRN (15:45)
[2021-12-31] MEDS ORDERED: ACETAMINOPHEN 325 MG TABLET PO PRN (15:45)
--- NOTE | 2021-12-31 18:55 | NUR ---
Per operations supervisor, pt will be in room 317 med surg.
--- NOTE | 2021-12-31 22:31 | NUR ---
Report given to Ida Lopez.
[2021-12-31] MEDS: IV NS 1000 ML 1,000 ML IV PRN (23:23)
--- NOTE | 2021-12-31 23:30 | NUR ---
RECEIVED PATIENT VIA GURNEY FROM ER. PATIENT IS A/O X4. C/O PAIN IN RIGHT LE. OPEN WOUND NOTED TO RLE. PICTURE TAKEN AND CLEAN DRESSING APPLIED TO AFFECTED AREA. PATIENT DENIES SOB. NO RESP. DISTRESS NOTED. PLACED ON TELE ORDERED, SR/ST. BP ELEVATED, CALLED OUT TO HALEY ANTOINE NP FOR FURTHER ORDERS. ORIENTED PATIENT TO ROOM AND CALL LIGHT. ALL NEEDS ATTENDED. WILL CONTINUE TO MONITOR AND ASSESS.
[2021-12-31] MEDS: CLINDAMYCIN PHOSPHATE IV 600 MG in IV DEXTROSE 5% 100 ML IV SCH (23:31)
[2021-12-31] MEDS: HYDROCODONE/APAP 10-325 MG TABLET PO PRN (23:37)
[2021-12-31 23:43] VITALS: BP 161/103
[2022-01-01] MEDS: CLONIDINE HCL 0.1 MG TABLET PO PRN ×3 (00:07→21:31)
[2022-01-01] MEDS: NICOTINE 14 MG/24HR PATCH TD SCH ×2 (00:07→08:51)
[2022-01-01] MEDS: GABAPENTIN 300 MG CAPSULE PO SCH ×4 (00:07→16:39)
[2022-01-01] MEDS: CLINDAMYCIN PHOSPHATE IV 600 MG in IV DEXTROSE 5% 100 ML IV SCH (05:53)
[2022-01-01 05:58] VITALS: BP 165/102
[2022-01-01 06:00] VITALS: BP 158/100
--- NOTE | 2022-01-01 06:47 | NUR ---
PATIENT ASLEEP IN BED. EASILY AROUSABLE. NO C/O PAIN AT THIS TIME. ON TELE SR/ST.
[2022-01-01 06:49] LABS: HEMATOCRIT 42.2 % (36.7-47.1); MEAN CORPUSCULAR HEMOGLOBIN 30.2 uug (23.8-33.4); MEAN CORPUSCULAR VOLUME 88.4 fL (73.0-96.2); PLATELET COUNT (AUTO) 270 K/uL (152-348)
[2022-01-01 07:00] LABS: CREATININE 0.8 mg/dL (0.6-1.3); MAGNESIUM 1.4 mg/dL (1.8-2.4); PHOSPHOROUS 3.6 mg/dL (2.5-4.9); POTASSIUM 3.9 mmol/L (3.5-5.1)
[2022-01-01] MEDS: LOSARTAN POTASSIUM 50 MG TABLET PO SCH (08:52)
[2022-01-01] MEDS: HYDROCHLOROTHIAZIDE 12.5 MG CAPSULE PO SCH (08:52)
[2022-01-01] MEDS ORDERED: Linaclotide (Linzess) 290 MCG) PO SCH (09:00)
[2022-01-01] MEDS ORDERED: Medication Not On Formulary EA (Losartan/Hydrochlorothiazide (Losartan-Hctz 50-12.5 Mg T PO SCH (09:00)
[2022-01-01] MEDS: HYDROCODONE/APAP 10-325 MG TABLET PO PRN ×3 (09:03→21:31)
--- NOTE | 2022-01-01 09:03 | NUR ---
PATIENT RECEIVED IN BED AWAKE ALERT ORIENTED REQUESTED FOR PAIN MEDICATIONS GIVEN ORDERED REMAIN ON IVF ORDERED WITH NO S/S OF INFILTERATION ON SITE CALL LIGHT AND PERSONAL BELONGINGS ARE WITHIN EASY REACH AT THIS TIME RIGHT LEG ELEVATED ON PILLOW MADE COMFORTABLE WILL CONTINUE TO OBSERVE.
--- NOTE | 2022-01-01 10:29 | NUR ---
MAG LEVEL IS 1.4 WITH NEW ORDERS AND NOTED
[2022-01-01] MEDS: MAGNESIUM SULFATE/D5W 100 ML IV SCH ×4 (11:04→14:41)
--- NOTE | 2022-01-01 11:43 | NUR ---
PATIENT STATED THAT HE IS FEELING LIKE HE IS WITHDRAWING BUT NO TREMORS NOTED HALEY ANTOINE HIS PROVIDER HERE WITH ORDERS TO GIVE HIM ATIVAN NEEDED AND NOTED.
[2022-01-01 12:00] VITALS: BP 166/101
[2022-01-01] MEDS: LORAZEPAM 2 MG/1 ML VIAL IV PRN ×2 (12:43→21:43)
[2022-01-01] MEDS: IV NS 1000 ML 1,000 ML IV PRN (15:27)
[2022-01-01 16:00] VITALS: BP_SYST 169; BP_SYST 91; BP_DIAS 104; BP_DIAS 46
--- NOTE | 2022-01-01 18:00 | NUR ---
MEDICATED WITH ATIVAN TO ASSIST WITH OPIOID WITHDRAWAL ORDERED AND PATIENT STATED THAT IT WAS HELPFUL REMAIN ON IVF ORDERED MADE COMFORTABLE WILL CONTINUE TO OBSERVE.
[2022-01-01] MEDS: DOXYCYCLINE HYCLATE 100 MG TABLET PO SCH (20:07)
[2022-01-01 21:25] VITALS: BP 162/109
--- NOTE | 2022-01-01 23:15 | NUR ---
PATIENT ASLEEP IN BED. AROUSABLE BUT VERY GROGGY. BP RECHECKED AND RECEIVED 170/105. CALLED OUT TO DR. MOTA FOR FURTHER ORDERS.
[2022-01-01] MEDS: hydrALAZINE HCL 20 MG/1 ML VIAL IV PRN (23:52)
--- NOTE | 2022-01-01 23:55 | NUR ---
PATIENT PLACED BACK ON TELE ORDERED PER MD. TECHNICAL SUPPORT REPRESENTATIVE AT BEDSIDE. PATIENT GIVEN HYDRALAZINE 10MG IV PER TECHNICAL SUPPORT REPRESENTATIVE. WILL CONTINUE TO MONITOR AND ASSESS.
--- NOTE | 2022-01-02 00:44 | NUR ---
PATIENT ON TELE ST 100. RECHECKED BLOOD PRESSURE, TRENDING DOWN 161/104. HR 100. WILL CONTINUE TO MONITOR AND ASSESS.
[2022-01-02] MEDS: ONDANSETRON 4 MG/2 ML VIAL IV PRN ×2 (01:56→10:36)
[2022-01-02] MEDS: IV NS 1000 ML 1,000 ML IV PRN (05:24)
[2022-01-02 05:32] VITALS: BP 176/106
[2022-01-02] MEDS: hydrALAZINE HCL 20 MG/1 ML VIAL IV PRN ×3 (05:40→23:52)
--- NOTE | 2022-01-02 05:40 | NUR ---
PATIENTS IV DISLODGED. REINSERTED TO RIGHT AC #20 GAUGE. PATIENTS BP 176/102. PATIENT GIVEN HYDRALAZINE 10MG IV PER BREAD DOUGH MIXER. ALL OTHER VSS. ON TELE SR/ST. ALL NEEDS ATTENDED, WILL CONTINUE TO MONITOR AND ASSESS.
[2022-01-02 06:11] LABS: HEMATOCRIT 45.4 % (36.7-47.1); MEAN CORPUSCULAR HEMOGLOBIN 30.2 uug (23.8-33.4); MEAN CORPUSCULAR VOLUME 88.4 fL (73.0-96.2); PLATELET COUNT (AUTO) 259 K/uL (152-348)
[2022-01-02 06:21] LABS: CREATININE 0.8 mg/dL (0.6-1.3); MAGNESIUM 1.6 mg/dL (1.8-2.4); POTASSIUM 3.4 mmol/L (3.5-5.1)
--- NOTE | 2022-01-02 08:02 | NUR ---
DR ROJAS HERE WITH ORDER TO DISCONTINUE TELE BUT THEN HE REVIEWED HIS BLOOD PRESSURE AND STATED TO CONTINUE WITH TELE MONITORING QAT THIS TIME.
[2022-01-02] MEDS: NICOTINE 14 MG/24HR PATCH TD SCH (08:21)
[2022-01-02] MEDS: HYDROCHLOROTHIAZIDE 12.5 MG CAPSULE PO SCH (08:22)
[2022-01-02] MEDS: GABAPENTIN 300 MG CAPSULE PO SCH ×3 (08:22→16:34)
[2022-01-02] MEDS: DOXYCYCLINE HYCLATE 100 MG TABLET PO SCH ×2 (08:22→20:22)
[2022-01-02] MEDS: LOSARTAN POTASSIUM 50 MG TABLET PO SCH (08:23)
[2022-01-02] MEDS: LORAZEPAM 2 MG/1 ML VIAL IV PRN ×2 (08:23→18:06)
--- NOTE | 2022-01-02 08:23 | NUR ---
PATIENT IS FEELING ANXIOUS STATED NEEDS ATIVAN FOR HIS WITHDRAWAL MEDICATED ORDERED WITH ATIVAN MADE COMFORTABLE WILL CONTINUE TO OBSERVE.
--- NOTE | 2022-01-02 09:33 | NUR ---
POTASSIUM LEVEL IS 3.4,MAG IS 1.6 WITH NEW ORDERS AND NOTED
[2022-01-02] MEDS: diphenhydrAMINE 50 MG/1 ML VIAL IV PRN ×2 (10:35→20:22)
--- NOTE | 2022-01-02 10:36 | NUR ---
PATIENT SEEN AND EXAMINED BY PALMER GIBSON NP AND NOTED THAT HE VOMITED ABOUT 300 ML OF GREENISH FLUID ALSO REQUESTING FOR BENADRYL MEDICATED WITH ZOFRAN AND BENADRYL ORDERED WILL CONTINUE TO OBSERVE.
--- NOTE | 2022-01-02 11:24 | NUR ---
NEW ORDER FOR MADDI NOTED FROM [facility] [employer] OPERATIVE.
[2022-01-02] MEDS ORDERED: POTASSIUM CHLORIDE 20 MEQ TAB.PRT.SR PO ONE (12:00)
[2022-01-02] MEDS ORDERED: MAGNESIUM OXIDE 400 MG TABLET PO ONE (12:00)
[2022-01-02 12:10] VITALS: BP 167/97
--- NOTE | 2022-01-02 13:00 | NUR ---
Clinical SW Note: SW provided a consult for the pt. Pt presented alert and oriented x3(name, situation, and place). Pt appeared drowsy and incoherent during the assessment. Pt's speech appeared unclear for the duration of the assessment. Pt appeared disheveled and unkempt. Pt stated he was there for an ankle wound. Pt denied substance use. Pt stated, "No, no drugs, no alcohol." Pt stated his friend, David brought him to the hospital. Pt stated he is , however he did not recall further information. Pt stated his current address is correct, however pt was not able to state if he lives there alone or not by stating, "I don't know." SW inquired discharge questions and asked pt if he has a safe discharge plan. Pt stated, "Yes.", however pt was not able to further provide details. SW will revisit pt again to check alert and orientation and provide the necessary resources as needed. KWADWO will remain available for the pt upon discharge and continue to work with pt, family and MD to ensure a safe and proper discharge plan.
--- NOTE | 2022-01-02 13:18 | NUR ---
WOUND CARE CONSULT: PT PRESENTS WITH OPEN WOUND TO RT LOWER LEG WITHOUT DRAINAGE, PRESENT ON ADMISSION. DR VALERA NOTIFIED OF DPM CONSULT REQUEST. IN AGREEMENT WITH PLAN OF CARE.
[2022-01-02] MEDS: HYDROCODONE/APAP 10-325 MG TABLET PO PRN (13:50)
[2022-01-02 16:14] VITALS: BP 145/96
[2022-01-02] MEDS ORDERED: METOCLOPRAMIDE HCL 10 MG/2 ML VIAL IV PRN (17:45)
--- NOTE | 2022-01-02 18:06 | NUR ---
MEDICATED WITH ATIVAN ORDERED PATIENT WAS GETTING SOME TREMORS ASSISTED WITH DINNER ON ROOM AIR WITH NO SOB WILL CONTINUE TO OBSERVE
--- NOTE | 2022-01-02 19:30 | NUR ---
Received patient lying in bed. Alert but appears lethargic. In no apparent distress. Midline on right upper arm intact and patent. NSR on tele with HR of 95/min. Needs assessed and attended to. Safety measure initiated and call light within reached. Continue to monitor.
--- NOTE | 2022-01-02 20:32 | NUR ---
Noted Dr. Oh with order to dc tele at 0755. Clarified order with Dr Oh as patient was still on tele when this nurse assumed care. Informed that patient is SR to Sinus tachy at times on tele. Dr. Oh agreed to keep patient on tele at this time and will reassess during the day shift.
[2022-01-02 20:52] VITALS: BP 139/84
[2022-01-02 23:50] VITALS: BP 168/104
[2022-01-03] MEDS: LORAZEPAM 2 MG/1 ML VIAL IV PRN (03:39)
[2022-01-03] MEDS: hydrALAZINE HCL 20 MG/1 ML VIAL IV PRN ×2 (04:12→17:51)
[2022-01-03 04:17] VITALS: BP 168/102
[2022-01-03 05:19] VITALS: BP 142/88
--- NOTE | 2022-01-03 06:31 | NUR ---
Patient remains AAOx3. In no acute distress. Midline on right upper arm intact and patent. SR on tele with HR of 92/min. No adverse reaction noted from antibiotic. Needs attended to and met. Safety measure maintained and call light within reached.
[2022-01-03 07:01] LABS: HEMATOCRIT 45.3 % (36.7-47.1); MEAN CORPUSCULAR HEMOGLOBIN 30.7 uug (23.8-33.4); MEAN CORPUSCULAR VOLUME 87.6 fL (73.0-96.2); PLATELET COUNT (AUTO) 283 K/uL (152-348)
[2022-01-03 07:16] LABS: CREATININE 0.7 mg/dL (0.6-1.3); MAGNESIUM 1.9 mg/dL (1.8-2.4); PHOSPHOROUS 2.4 mg/dL (2.5-4.9); POTASSIUM 3.3 mmol/L (3.5-5.1)
--- NOTE | 2022-01-03 07:30 | NUR ---
RECEIVED PATIENT IN BED ASLEEP BUT IS EASILY AROUSABLE ON ROUNDS DENIES PAIN OR DISCOMFORTS AT THIS TIME REMAIN ON TELE SR -ST WITH NO ECTOPY CALL LIGHTS AND PERSONAL BELONGINGS ARE WITHIN EASY REACH WILL CONTINUE TO OBSERVE.
[2022-01-03] MEDS: GABAPENTIN 400 MG CAPSULE PO SCH ×3 (09:15→16:48)
[2022-01-03] MEDS: HYDROCHLOROTHIAZIDE 12.5 MG CAPSULE PO SCH (09:15)
[2022-01-03] MEDS: NICOTINE 14 MG/24HR PATCH TD SCH (09:15)
[2022-01-03] MEDS: DOXYCYCLINE HYCLATE 100 MG TABLET PO SCH ×2 (09:15→20:27)
[2022-01-03] MEDS: GABAPENTIN 300 MG CAPSULE PO SCH ×3 (09:15→16:47)
[2022-01-03] MEDS: LOSARTAN POTASSIUM 50 MG TABLET PO SCH (09:16)
[2022-01-03] MEDS: HYDROCODONE/APAP 10-325 MG TABLET PO PRN (09:17)
[2022-01-03] MEDS ORDERED: POTASSIUM CHLORIDE 20 MEQ TAB.PRT.SR PO ONE (10:00)
[2022-01-03 11:52] VITALS: BP 137/91
[2022-01-03 15:53] VITALS: BP 166/91
[2022-01-03] MEDS ORDERED: NEUTRA PHOS PACKET PO ONE (16:00)
--- NOTE | 2022-01-03 16:00 | NUR ---
DR NARAYANAN HERE AND SEEN PATIENT DEBRIDED HIS RIGHT EXT WOUND AT THE BEDSIDE WITH ORDERS ON HOW TO DO ROUTINE WOUND CARE PATIENT TOLERATED WELL.
--- NOTE | 2022-01-03 18:00 | NUR ---
PHOS LEVEL IS 2.4 AND POTASSIUM IS 3.3 WITH NEW REPLACEMENT ORDERS AND NOTED.PATIENT IS IN BED AWAKE STILL SLOW AND SOMEWHAT WEAK BUT STATED FEELS BETTER ABLE TO MAKE SIMPLE NEEDS KNOWN MADE COMFORTABLE WILL CONTINUE TO OBSERVE.
[2022-01-03 20:00] VITALS: BP 152/96
[2022-01-04] VITALS: BP 172/101
[2022-01-04] MEDS: LORAZEPAM 2 MG/1 ML VIAL IV PRN (00:21)
[2022-01-04] MEDS: hydrALAZINE HCL 20 MG/1 ML VIAL IV PRN (00:22)
[2022-01-04 04:00] VITALS: BP 166/103
--- NOTE | 2022-01-04 05:54 | NUR ---
Received patient alert and oriented x 4. No ASE to antibiotic treatment for cellulitis. On tele sinus tachy. Administered hydralazine for elevated blood pressure and Ativan for anxiety. Patient slept through the night. Skin kept clean and dry. Able to use urinal. Call button within reach. Administered clonidine for elevated systolic blood pressure. No signs of respiratory distress.
[2022-01-04] MEDS: CLONIDINE HCL 0.1 MG TABLET PO PRN (06:11)
[2022-01-04 06:41] LABS: HEMATOCRIT 48.8 % (36.7-47.1); MEAN CORPUSCULAR HEMOGLOBIN 30.2 uug (23.8-33.4); MEAN CORPUSCULAR VOLUME 88.7 fL (73.0-96.2); PLATELET COUNT (AUTO) 298 K/uL (152-348)
[2022-01-04 06:58] LABS: CREATININE 0.8 mg/dL (0.6-1.3); MAGNESIUM 1.9 mg/dL (1.8-2.4); PHOSPHOROUS 3.1 mg/dL (2.5-4.9); POTASSIUM 3.5 mmol/L (3.5-5.1)
[2022-01-04 08:00] VITALS: BP 143/97
[2022-01-04] MEDS ORDERED: LORAZEPAM 2 MG/1 ML VIAL IV PRN (08:15)
[2022-01-04] MEDS: GABAPENTIN 400 MG CAPSULE PO SCH ×2 (09:38→13:15)
[2022-01-04] MEDS: GABAPENTIN 300 MG CAPSULE PO SCH ×2 (09:38→13:15)
[2022-01-04 09:39] VITALS: BP 142/97
[2022-01-04] MEDS: DOXYCYCLINE HYCLATE 100 MG TABLET PO SCH (09:39)
[2022-01-04] MEDS: NICOTINE 14 MG/24HR PATCH TD SCH (09:39)
[2022-01-04] MEDS: HYDROCHLOROTHIAZIDE 12.5 MG CAPSULE PO SCH (09:39)
[2022-01-04] MEDS: LOSARTAN POTASSIUM 50 MG TABLET PO SCH (09:39)
[2022-01-04] MEDS ORDERED: DOXY100T2 PO (10:52)
--- NOTE | 2022-01-04 14:54 | NUR ---
Patient discharged from unit. IV site removed. ID badge removed. Discharge education provided.
== END 2022-01-04 14:42 | disposition home or self-care (01) | DRG 571 ==
LOC: ER 13:15 → TRANSITION 17:49 → MEDSURG3 22:59 → TELE3 23:12 → MEDSURG3 01-01 15:00 → TELE3 01-01 23:38 → MEDSURG3 01-04 08:45
PROVIDERS: ADMIT Nurse Practitioner Acute Care; ATTEND Registered Nurse
PROC: 0JBN0ZZ Excision of Right Lower Leg Subcutaneous Tissue and Fascia, Open Approach (ICD-10-PCS; principal; 2022-01-03)
DX: L03.115 Cellulitis of right lower limb (principal); F11.13 Opioid abuse with withdrawal; G89.29 Other chronic pain; I10 Essential (primary) hypertension; L27.1 Localized skin eruption due to drugs and medicaments taken internally; T36.8X5A Adverse effect of other systemic antibiotics, initial encounter; T36.0X5A Adverse effect of penicillins, initial encounter; Y92.238 Other place in hospital as the place of occurrence of the external cause; F17.210 Nicotine dependence, cigarettes, uncomplicated; Z20.822 Contact with and (suspected) exposure to COVID-19; S81.801A Unspecified open wound, right lower leg, initial encounter; X58.XXXA Exposure to other specified factors, initial encounter; Y93.9 Activity, unspecified; Y92.009 Unspecified place in unspecified non-institutional (private) residence as the place of occurrence of the external cause
CPT/HCPCS: 36415; 71045; 74018; 83605; 83735; 84100; 84484; 85025; 85730; 86850; 86900; 86901; 87040; 87070; 93005; A4663; G0378; J0360; J1200; J1720; J2060; J2405; J2543; J2930; J3370; J3475; J3490; J7040

== ENCOUNTER 2023-01-18 09:38 | Emergency (ER) | payer BC ==
[~2023-01-18] VITALS: Ht 175.3 cm; Wt 65.8 kg
[~2023-01-18 09:38] MED LIST changes: -CLIN300C12 PO; +DOXY100T2 PO; -HYDR-3980 PO
--- NOTE | 2023-01-18 09:46 | NUR ---
seen and examined by
[2023-01-18] MEDS ORDERED: CIPR5DRO LEFTEYE (09:50)
[2023-01-18 10:01] VITALS: BP 122/80
--- NOTE | 2023-01-18 10:01 | NUR ---
Patient discharged to home in stable condition. Written and verbal after care instructions given. Patient verbalizes understanding of instructions. Stressed follow up or return to ER for worsening s/s.
== END 2023-01-18 10:02 | disposition home or self-care (01) ==
LOC: ER 09:38
DX: H10.9 Unspecified conjunctivitis (principal); F17.210 Nicotine dependence, cigarettes, uncomplicated; Z79.2 Long term (current) use of antibiotics; Z79.899 Other long term (current) drug therapy
CPT/HCPCS: A4663